=== PATIENT | male | born 1965 | race Caucasian/White ===

== ENCOUNTER → 2016-09-01 | Outpatient (CLI) | payer MEDICAID ==
[~2016-09-01] MED LIST: BUPIVACAINE HCL 0.5 % INJ/PF 30 ML SDV ONE; EPINEPHRINE INJ 30 MG/30 ML VIAL ONE
--- NOTE | 2016-09-03 10:33 | XCELERA REPORT ---
[address] [address] Lower Extremity Arterial Evaluation Name: BEENA BUCHANAN Age: 50 yrs Gender: Male : 1965 Patient Status: Outpatient Patient Location: Study Date: 09/01/2016 02:08 PM Procedure: A color flow and duplex scan of the lower extremity arteries was performed bilaterally with velocity and waveform anaylsis. Ankle brachial indicies performed. Reason For Study: CLAUDICATION Ordering Physician: HALEY AGUILAR Performed By: Boogie Andrews Measurements and Calculations Right Left BACK END ARCHITECT PSV 104.5 125.7 cm/sec Prox PFA PSV -134.4 -150.1 cm/sec Prox SFA PSV -56.6 cm/sec Mid SFA PSV -57.8 cm/sec Dist SFA PSV -20.6 cm/sec Dist Pop A PSV 15.5 26.7 cm/sec Dist [place] PSV 26.9 29.4 cm/sec Dist [employer] PSV 24.8 28.2 cm/sec Eric Pedis PSV 20.4 46.7 cm/sec Right Side Arterial Evaluation Normal velocity and triphasic waveforms noted in the Common Femoral artery. Occluded Femoral artery with monophasic reconstitution to the infrageniculate vessels. Occlusion at the Femoral artery. Ankle Brachial index is 0.54. Left Side Arterial Evaluation Normal velocity and triphasic waveforms noted in the Common Femoral artery. Occluded Femoral artery with monophasic reconstitution to the infrageniculate vessels. Occlusion at the Femoral artery. Ankle Brachial index is 0.43. Interpretation Summary Severe hemodynamically significant lesions in the bilateral lower extremities, on duplex imaging, at rest. : HALEY AGUILAR > Bryson Hinton
== END ==
LOC: SP 13:20
PROVIDERS: ATTEND Internal Medicine Cardiovascular Disease
DX: I70.213 Atherosclerosis of native arteries of extremities with intermittent claudication, bilateral legs (principal)
CPT/HCPCS: 93925

== ENCOUNTER → 2017-01-09 | Outpatient (CLI) | payer MEDICAID ==
[2017-01-09 16:54] LABS: CREATININE RESULT 0.87 mg/dL (0.52-1.25)
== END ==
LOC: OD 15:17
PROVIDERS: ATTEND Surgery
DX: I73.9 Peripheral vascular disease, unspecified (principal)
CPT/HCPCS: 36415; 82565

== ENCOUNTER 2017-08-26 23:45 | Emergency (ER) | payer MEDICAID ==
[2017-08-26] MEDS ORDERED: DIPHENHYDRAMINE HCL 50 MG/ML VIAL IM ONE (23:50)
[2017-08-26] MEDS ORDERED: HALOPERIDOL LACTATE INJ 5 MG/1 ML VIAL IM ONE (23:50)
[2017-08-26] MEDS ORDERED: LORAZEPAM INJ 2 MG/1 ML VIAL IM ONE (23:50)
[2017-08-27] MEDS ORDERED: NICOTINE 21 MG/24 HR PATCH.TD24 TD ONE (00:09)
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
[2017-08-27] MEDS ORDERED: MIDAZOLAM 2 MG/2 ML INJ IM ONE (00:17)
[2017-08-27] MEDS ORDERED: MIDAZOLAM 2 MG/2 ML INJ ONE (00:19)
--- NOTE | 2017-08-27 01:09 | RADIOLOGY REPORT (SQ) ---
EXAM DESCRIPTION: CT HEAD WITHOUT IV CONTRAST COMPLETED DATE/TME: 08/26/2017 23:51 CLINICAL HISTORY: facial injury/trauma COMPARISON: None available TECHNIQUE: Axial CT of the head obtained from the skull apex to the skull base without contrast. FINDINGS: No acute intracranial hemorrhage identified. No mass, mass effect, shift of the midline, abnormal extra-axial fluid collection or CT evidence of acute ischemic change identified. The ventricular system is unremarkable. Scattered areas of hypodensity in the supratentorial white matter are nonspecific and likely represents sequela of chronic small vessel ischemic change. No acute abnormalities of the supratentorial white matter, basal ganglia, cerebellum, or brainstem. Negative cisterna magna. Mucosal thickening of the paranasal sinuses. Acute mildly displaced nasal bone fractures identified. Likely fracture of the nasal septum. Right orbital floor blowout fracture. Fractures detailed on facial bone CT. No skull fracture identified. Visualized orbits and globes are unremarkable. Cranial atherosclerosis. DLP: 1017.17 mGy-cm IMPRESSION: 1. No acute intracranial abnormality identified. 2. Acute nondisplaced nasal bone fracture. Mildly displaced right orbital floor blowout fracture. Likely fracture of the nasal septum. Facial bones fractures are more adequately detailed on facial bone CT performed same day. This exam was performed according to our departmental dose-optimization program, which includes automated exposure control, adjustment of the mA and/or kV according to patient size and/or use of iterative reconstruction technique.
--- NOTE | 2017-08-27 01:16 | RADIOLOGY REPORT (SQ) ---
EXAM DESCRIPTION: CT MAXILLOFACIAL WITHOUT IV CONTRAST COMPLETED DATE/TME: 08/26/2017 23:51 CLINICAL HISTORY: facial injury COMPARISON: None available TECHNIQUE: Axial CT of the facial bone obtained without contrast. Coronal and sagittal reformatted images available. DLP: 602.24 mGy-cm FINDINGS: Orbits: Minimally displaced comminuted blowout fracture of the right orbital floor without significant herniation of intraorbital fat or the right inferior rectus muscle. Intraorbital contents: The globes are intact. Extraocular muscles are symmetric. No intraconal fat stranding. Nasal bones: Acute comminuted mildly displaced bilateral nasal bone fractures as well as diastases of the articulation of the left nasal bone with the anterior nasal spine of the left maxilla. Acute mildly displaced fracture of the nasal septum. Maxilla: The maxillary hard palate is intact. Maxillary antral boyd are intact. Sinuses: Diffuse mucosal thickening of the left frontal sinus, left maxillary sinus, left anterior ethmoid air cells, and left sphenoid sinus. There is mucosal obstruction of the left ostiomeatal complex. There is also mild mucosal thickening of the right maxillary sinus. Mild obstruction of the right ostiomeatal complex. Zygomatic processes: Intact Pterygoid plates: Intact Mandible: Intact. No mandibular condylar dislocation. Skull base/cervical spine: Visualized portions of the skull base and cervical spine are intact. Visualized mastoid air cells are well aerated. Subcutaneous soft tissues: Diffuse contusion within the soft tissues of the nose. Neck soft tissues: No definite abnormality involving the nasopharynx, oropharynx, or hypopharynx. Fossa of Rosenmuller are clear. Parotid glands and submandibular glands are unremarkable. No cervical lymphadenopathy. Atherosclerotic vascular calcification. IMPRESSION: 1. Acute comminuted mildly displaced bilateral nasal bone fractures. 2. Minimally displaced comminuted blowout fracture of the right orbital floor without definite herniation of intraorbital ocular fat or the inferior rectus muscle. Correlation for right inferior rectus muscle function still recommended. 3. Minimally displaced nasal septal fracture. This exam was performed according to our departmental dose-optimization program, which includes automated exposure control, adjustment of the mA and/or kV according to patient size and/or use of iterative reconstruction technique.
[2017-08-27] MEDS ORDERED: HALOPERIDOL LACTATE INJ 5 MG/1 ML VIAL IM ONE (03:50)
[2017-08-27] MEDS ORDERED: NORMAL SALINE 1000 ML 2,000 ML IV PRN (08:12)
[2017-08-27] MEDS ORDERED: CEFOXITIN INJ 1 GM VIAL IV ONE (08:14)
[2017-08-27] MEDS ORDERED: AMOXICILLIN TRIHYDRATE 500 MG CAPSULE PO ONE (11:51)
[2017-08-27 12:11] VITALS: BP 106/84
== END 2017-08-27 13:05 | disposition home or self-care (01) ==
LOC: ER 23:45
DX: S02.31XA Fracture of orbital floor, right side, initial encounter for closed fracture (principal); S02.2XXA Fracture of nasal bones, initial encounter for closed fracture; W10.9XXA Fall (on) (from) unspecified stairs and steps, initial encounter; Y92.89 Other specified places as the place of occurrence of the external cause; F10.129 Alcohol abuse with intoxication, unspecified; I10 Essential (primary) hypertension; J44.9 Chronic obstructive pulmonary disease, unspecified; Z85.07 Personal history of malignant neoplasm of pancreas; Z88.5 Allergy status to narcotic agent
CPT/HCPCS: 99284; 96372; 36415; 82962; 80307; 70450; 70486; J2250; J1200; J1630; J2060; J3490